=== PATIENT | female | born 1980 | race Caucasian/White ===

== ENCOUNTER 2019-06-03 11:23 | Inpatient (IN) ==
[2019-06-03] MEDS ORDERED: CeFAZolin Syr 2,000MG/20 ML 2,000 MG/20 ML SYRINGE IVPB ONE (12:02)
[2019-06-03] MEDS ORDERED: Albuterol 2.5 MG/3 ML NEBULIZER IH ONE (12:02)
[2019-06-03] MEDS ORDERED: Ringers Solution, Lactated 1,000 ML IVC SCH ×2 (12:15→17:49)
[2019-06-03] MEDS ORDERED: Celecoxib 200 MG CAPSULE PO ONE (12:24)
[2019-06-03] MEDS ORDERED: Gabapentin 300 MG CAPSULE PO ONE (12:24)
[2019-06-03] MEDS ORDERED: *HR* OxyCODONE ER (12 HR) 10 MG TABLET PO ONE (12:24)
[2019-06-03] MEDS ORDERED: Ondansetron 4 MG/2 ML VIAL IVP ONE (12:25)
[2019-06-03] MEDS ORDERED: Propofol 500 MG/50 ML INFUS..BTL ONE ×2 (13:07→15:45)
[2019-06-03] MEDS ORDERED: Ondansetron 4 MG/2 ML VIAL ONE (13:07)
[2019-06-03] MEDS ORDERED: Lidocaine -MPF 2% 2 ML VIAL ONE (13:07)
[2019-06-03] MEDS ORDERED: *HR* FentaNYL (PF) 100 MCG/2 ML VIAL ONE (13:38)
[2019-06-03] MEDS ORDERED: *HR* Midazolam HCl 2 MG/2 ML VIAL ONE (13:38)
[2019-06-03] MEDS ORDERED: Ethanol\\Acetic Acid\\Na Ace\\Ben 1,000 ML IRRIG.SOLN IR ONE (14:04)
[2019-06-03] MEDS ORDERED: *HR* PHENYLEPHRINE 1,000 MCG/10 ML SYRINGE IVP ONE (15:45)
[2019-06-03] MEDS ORDERED: Tranexamic Acid 1,000 MG/10 ML VIAL ONE (15:45)
[2019-06-03] MEDS ORDERED: Famotidine 20 MG/2 ML VIAL IVP ONE (16:40)
[2019-06-03] MEDS ORDERED: Famotidine 20 MG/2 ML VIAL ONE (16:42)
[2019-06-03] MEDS: *HR* HYDROmorphone (PF) 1 MG/ML SYRINGE IVP PRN ×4 (16:48→17:14)
[2019-06-03 17:31] LABS: Hematocrit 40.4 % (35.3-44.9)
[2019-06-03 17:37] LABS: Hemoglobin 13.5 g/dL (11.5-15.4)
[2019-06-03] MEDS ORDERED: MOM Conc 10 ML UD.LIQ PO PRN (17:49)
[2019-06-03] MEDS ORDERED: Gabapentin 300 MG CAPSULE PO SCH (17:49)
[2019-06-03] MEDS ORDERED: Naloxone 0.4 MG/ML INJ IVP PRN (17:49)
[2019-06-03] MEDS ORDERED: Temazepam 15 MG CAPSULE PO PRN (17:49)
[2019-06-03] MEDS ORDERED: HYDROcodone BIT/Homatropine 5 MG TABLET PO PRN (17:49)
[2019-06-03] MEDS ORDERED: Ondansetron 4 MG/2 ML VIAL IVP PRN (17:49)
[2019-06-03] MEDS ORDERED: Sennosides 8.6 MG TABLET PO PRN (17:49)
[2019-06-03] MEDS ORDERED: *HR* Promethazine 25 MG/ML VIAL IVP PRN (17:49)
[2019-06-03] MEDS ORDERED: *HR* Enoxaparin 30 MG/0.3 ML SYRINGE SQ SCH (18:00)
[2019-06-03] MEDS: *HR* Enoxaparin 30 MG/0.3 ML SYRINGE SQ SCH (18:07)
[2019-06-03] MEDS: Ascorbic Acid 500 MG TABLET PO SCH (18:08)
[2019-06-03 21:42] VITALS: BP 105/71
[2019-06-03] MEDS: Gabapentin 300 MG CAPSULE PO SCH (21:44)
[2019-06-03] MEDS: *HR* OxyCODONE Immed Rel 5 MG TABLET PO PRN (23:13)
[2019-06-04] MEDS: *HR* OxyCODONE Immed Rel 5 MG TABLET PO PRN ×3 (03:55→14:45)
[2019-06-04 05:04] LABS: Basophils % 0.3 %; Eosinophils % 0.1 %; Hematocrit 28.1 % (35.3-44.9); Immature Granulocytes % 0.6 % (0-4); Lymphocytes # 1.1 K/mcL (0.6-4.6); Lymphocytes % 7.6 %; Mean Corpuscular HGB Conc 33.1 g/dL (31.6-35.5); Mean Corpuscular Volume 90.6 fL (83.0-100.0); Mean Platelet Volume 10.2 fL (9.4-12.4); Monocytes % 6.9 %; Neutrophils # 12.4 K/mcL (1.6-8.9); Platelet Count 209 K/mcL (140-400); Red Cell Distribution Width 12.5 % (11.5-14.5); Segmented Neutrophils % 84.5 %; White Blood Count 14.7 K/mcL (4.3-11.1)
[2019-06-04 05:05] LABS: Hemoglobin 9.3 g/dL (11.5-15.4)
[2019-06-04 05:22] LABS: BUN/Creatinine Ratio 18 (6-26); Blood Urea Nitrogen 12 mg/dL (6-20); Calcium 8.3 mg/dL (8.6-10.3); Carbon Dioxide 25 mEq/L (23-29); Chloride 103 mEq/L (98-107); Glucose 110 mg/dL (70-105); Osmolality,Calculated 276 (280-300); Potassium 4.3 mEq/L (3.5-5.1); Sodium 133 mEq/L (136-145); eGFR For African Americans > 60 (> 60); eGFR For Non-African Americans > 60 (> 60)
[2019-06-04] MEDS: *HR* Enoxaparin 30 MG/0.3 ML SYRINGE SQ SCH (05:46)
[2019-06-04] MEDS ORDERED: Multivit/Ca/Min/Fe/FA 1 TAB TABLET PO SCH (09:00)
[2019-06-04] MEDS: Gabapentin 300 MG CAPSULE PO SCH (09:28)
[2019-06-04] MEDS: Ascorbic Acid 500 MG TABLET PO SCH (09:29)
== END 2019-06-04 15:30 | disposition home or self-care (01) | DRG 301 ==
LOC: SAMDAY 11:23 → 3NENU 17:48
PROVIDERS: ADMIT Orthopaedic Surgery; ATTEND Orthopaedic Surgery